=== PATIENT | male | born 1940 | race Hispanic/Latino ===

== ENCOUNTER 2017-07-11 21:47 | Observation (INO) | payer OTHER ==
[~2017-07-11] VITALS: Ht 182.9 cm; Wt 84.6 kg
[2017-07-11 22:12] LABS: BASOPHILS % (AUTO) 0.4 % (0.0-5.0); MEAN CORPUSCULAR HEMOGLOBIN 30.9 pg (27.0-33.0); MEAN CORPUSCULAR HGB CONC 35.4 g/dL (32.0-36.0); MEAN CORPUSCULAR VOLUME 87.4 fL (79-99); MONOCYTES % (AUTO) 18.3 % (3.0-13.0); NEUTROPHILS % (AUTO) 68.3 % (40.0-77.0); PLATELET COUNT (AUTO) 289 K/uL (130-400); RED BLOOD CELL COUNT(AUTO) 4.23 MIL/uL (4.50-6.20); RED CELL DISTRIBUTION WIDTH 13.4 % (11.0-15.5); WHITE BLOOD COUNT (AUTO) 5.9 K/uL (4.8-10.8)
[2017-07-11] MEDS ORDERED: LABETALOL HCL 5 MG/ML 20ML VIAL IV ONE (22:19)
[2017-07-11 22:27] LABS: ALBUMIN 3.8 g/dL (3.5-5.0); BILIRUBIN,TOTAL 0.7 mg/dL (0.2-1.0); CREATININE 1.2 mg/dL (0.5-1.5); TOTAL PROTEIN, SERUM 6.7 g/dL (6.0-8.3)
[2017-07-11 22:32] LABS: POTASSIUM 2.9 mmol/L (3.5-5.1)
[2017-07-11 22:44] LABS: AMPHET/METH SCREEN,URINE NEGATIVE (NEGATIVE); BARBITURATE SCREEN, URINE NEGATIVE (NEGATIVE); BENZODIAZEPINES SCREEN,URINE NEGATIVE (NEGATIVE); CANNABINOID SCREEN,URINE NEGATIVE (NEGATIVE); COCAINE SCREEN,URINE NEGATIVE (NEGATIVE); OPIATE SCREEN,URINE NEGATIVE (NEGATIVE); PHENCYCLIDINE SCREEN,URINE NEGATIVE (NEGATIVE)
[2017-07-12] MEDS ORDERED: SODIUM CHLORIDE 0.9% 1000ML 1,000 ML IV ONE (00:56)
[2017-07-12] MEDS ORDERED: POTASSIUM BICARB/CIT AC 25 MEQ TABLET.EFF ONE (00:56)
[2017-07-12] MEDS ORDERED: ASPIRIN 325 MG TABLET ONE (01:29)
[2017-07-12] MEDS ORDERED: AMLODIPINE BESYLATE 5 MG TAB PO ONE (02:11)
[2017-07-12 02:30] VITALS: BP 153/71
[2017-07-12] MEDS ORDERED: AEC81 PO ×2 (03:08)
[2017-07-12] MEDS ORDERED: HYDR25TA PO (03:08)
[2017-07-12] MEDS ORDERED: OMEP20CA10 PO ×2 (03:08)
[2017-07-12] MEDS ORDERED: CETI10TA57 PO ×2 (03:08)
[2017-07-12] MEDS ORDERED: LOSA50TA37 PO (03:08)
[2017-07-12] MEDS ORDERED: ATOR20TA65 PO ×2 (03:08)
[2017-07-12] MEDS ORDERED: AMLODIPINE BESYLATE 5 MG TAB PO SCH (04:00)
[2017-07-12 08:00] VITALS: BP 127/78
[2017-07-12 11:49] VITALS: BP 136/78
[2017-07-12] MEDS ORDERED: LOSA100T29 PO ×2 (12:42)
== END 2017-07-12 14:00 | disposition home or self-care (01) ==
LOC: EDH 21:47 → 3CH 07-12 01:47
PROVIDERS: ADMIT Internal Medicine Nephrology; ATTEND Internal Medicine Nephrology
DX: I10 Essential (primary) hypertension (principal); E78.00 Pure hypercholesterolemia, unspecified; K27.9 Peptic ulcer, site unspecified, unspecified as acute or chronic, without hemorrhage or perforation; Z82.49 Family history of ischemic heart disease and other diseases of the circulatory system
CPT/HCPCS: 36415 ×2; 70450; 71045; 80053; 80305; 84132; 84484; 85025; 93005; 99285; G0378 ×12; J3490; J7030

== ENCOUNTER 2017-07-14 23:16 | Emergency (ER) | payer OTHER ==
[~2017-07-14 23:16] MED LIST: AEC81 PO; ATOR20TA65 PO; CETI10TA57 PO; HYDR25TA PO; LOSA100T29 PO; LOSA50TA37 PO; OMEP20CA10 PO
[2017-07-15] MEDS ORDERED: AMLODIPINE BESYLATE 5 MG TAB PO ONE (00:41)
== END 2017-07-15 02:01 | disposition home or self-care (01) ==
LOC: EDH 23:16
DX: I10 Essential (primary) hypertension (principal); Z90.49 Acquired absence of other specified parts of digestive tract; Z98.890 Other specified postprocedural states